=== PATIENT | female | born 1945 | race Caucasian/White ===

== ENCOUNTER → 2016-05-28 | Outpatient (CLI) | payer BC ==
[~2016-05-28] MED LIST: ATOR-54 PO; CHOLTAB3 PO; CLOB-65 EXT; ESTCR PV; FAMO10CH PO; FLV400 PO; IRONCAP18 PO; METO50TA7 PO; MULT60CA PO; MULTTAB PO
[2016-05-28 11:01] LABS: BASO % 0.5 %; BASO ABS # 0.03 K/uL (0-0.2); COMPLETE YES; EOS % 1.7 %; HEMATOCRIT 39.4 % (37-47); IG% 0.5 %; LYMPH % 18.8 %; LYMPH ABS # 1.13 K/uL (1.2-3.4); MEAN CELL VOLUME 82.3 fL (80-100); MEAN CORPUSCULAR HEMOGLOBIN 27.6 pg (25-34); MEAN CORPUSCULAR HGB CONC 33.5 g/dl (32-36); MEAN PLATELET VOLUME 8.9 fL (7.4-10.4); MONO % 6.3 %; NEUT % 72.2 %; PLATELET COUNT 210 K/uL (130-400); RED BLOOD COUNT 4.79 M/uL (4.2-5.4); WHITE BLOOD COUNT 6.02 K/uL (4.8-10.8)
[2016-05-28 13:13] LABS: ESTIMATED AVERAGE GLUCOSE 103 mg/dl; HA1C FLAG Normal (Normal)
[2016-05-28 13:17] LABS: ALT/SGPT 21 U/L (12-78); AST/SGOT 18 U/L (15-37); BLOOD UREA NITROGEN 22 mg/dl (7-18); BUN/CREATININE RATIO 32.1 (10-20); C-REACTIVE PROTEIN 0.32 mg/dl (0-0.29); CARBON DIOXIDE 28 mmol/L (21-32); CHLORIDE 110 mmol/L (98-107); CREATININE 0.67 mg/dl (0.60-1.20); GLUCOSE 88 mg/dl (70-99); POTASSIUM 3.9 mmol/L (3.5-5.1); RHEUMATOID FACTOR < 10.0 U/mL (0-15); SODIUM 143 mmol/L (136-145)
[2016-05-28 13:19] LABS: ALB/GLOB RATIO 1.1 (0.9-2); ALKALINE PHOSPHATASE 78 U/L (45-117)
[2016-05-28 13:19] LABS: CHOLESTEROL/HDL RATIO 3.9
[2016-05-28 13:33] LABS: LYME DISEASE AB IGG NEG (NEG); LYME DISEASE AB IGM NEG (NEG)
--- NOTE | 2016-06-01 11:28 | CODING QUERY MEDICAL NECESSITY ---
SUPPORTING DIAGNOSIS NEEDED Ritter LEUNG, A supporting diagnosis is required for the test/procedure performed on this patient in order for us to be reimbursed by the patient's insurance. Please provide a supporting diagnosis for the following test/procedure listed below next to the test name along with your signature. *If there is no additional diagnosis for this patient that would support the following test/procedure please document that below next to the test/procedure. Test(s)/Procedure(s) that require a supporting diagnosis: * [id number] GLYCATED HEMOGLOBIN DIAGNOSIS: DATE OF SERVICE: 05/28/16 Provider Signature: Date: Thank you Cali M[facility] Information Management Once completed, please kindly fax back to [phone] For questions please call [phone]
== END | disposition home or self-care (01) ==
LOC: C.LABBC 10:03
PROVIDERS: ATTEND Family Medicine
DX: Z00.00 Encounter for general adult medical examination without abnormal findings (principal); E78.5 Hyperlipidemia, unspecified; M16.12 Unilateral primary osteoarthritis, left hip

== ENCOUNTER → 2016-06-16 | Outpatient (CLI) | payer BC | END | disposition home or self-care (01) | LOC: C.MAMM 09:19 | PROVIDERS: ATTEND Nurse Practitioner Adult Health | DX: M16.12 Unilateral primary osteoarthritis, left hip (principal); M85.851 Other specified disorders of bone density and structure, right thigh; M85.852 Other specified disorders of bone density and structure, left thigh; M85.9 Disorder of bone density and structure, unspecified ==

== ENCOUNTER → 2016-06-24 | Outpatient (CLI) | payer BC ==
--- NOTE | 2016-06-24 16:25 | DIAGNOSTIC IMAGING REPORT ---
PELVIS 1 OR 2 VIEW ROUTINE CLINICAL HISTORY: R76.8 Positive ELVI (antinuclear antibody)M25.50 PolyarthralgiaM2 pain COMPARISON: None. DISCUSSION: Mild degenerative changes of the hips bilaterally. No evidence for acetabular protrusion. All remaining osseous structures are unremarkable. There is no evidence for soft tissue swelling. IMPRESSION: Mild degenerative narrowing of the hip joint spaces bilaterally. Electronically signed by: Shree Mcgregor M.D. 06/24/2016 4:24 PM Dictated Date/Time: 06/24/2016 4:24 PM
--- NOTE | 2016-06-24 16:26 | DIAGNOSTIC IMAGING REPORT ---
CERVICAL SPINE 5 VIEWS HISTORY: Pain R76.8 Positive ELVI (antinuclear antibody)M25.50 PolyarthralgiaM2 COMPARISON: None. FINDINGS: The cervical spine is visualized from C1 through the superior endplate of T1. There is no fracture. No subluxation. Moderate degenerative disc change from C5 through C7. Prevertebral soft tissues and the atlantodens interval are intact. IMPRESSION: Moderate degenerative disc change from C5 through C7. Otherwise negative study Electronically signed by: Shree Mcgregor M.D. 06/24/2016 4:25 PM Dictated Date/Time: 06/24/2016 4:24 PM
--- NOTE | 2016-06-24 16:27 | DIAGNOSTIC IMAGING REPORT ---
LEFT HAND MIN 3 VIEWS ROUTINE CLINICAL HISTORY: R76.8 Positive ELVI (antinuclear antibody)M25.50 PolyarthralgiaM2 LEFT HAND PAIN COMPARISON: None. DISCUSSION: The bones are osteopenic. There are osteoarthritic type changes most pronounced at the level of the first carpometacarpal joint. No fractures are visualized. No bony erosions are evident. IMPRESSION: 1. Osteopenia 2. Osteoarthritic type changes most pronounced at the level the first carpal metacarpal joint 3. No acute fractures 4. No evidence of bony erosive disease Electronically signed by: Deniz De La Rosa M.D. 06/24/2016 4:25 PM Dictated Date/Time: 06/24/2016 4:24 PM
--- NOTE | 2016-06-24 16:27 | DIAGNOSTIC IMAGING REPORT ---
RIGHT HAND MIN 3 VIEWS ROUTINE CLINICAL HISTORY: R76.8 Positive ELVI (antinuclear antibody)M25.50 PolyarthralgiaM2 Right pain COMPARISON: None. DISCUSSION: The bones and joint spaces appear intact. There is no evidence of fracture, dislocation or bony disease. There is no evidence for soft tissue swelling. IMPRESSION: Negative study. Electronically signed by: Shree Mcgregor M.D. 06/24/2016 4:25 PM Dictated Date/Time: 06/24/2016 4:25 PM
[2016-06-24 17:14] LABS: C-REACTIVE PROTEIN 0.78 mg/dl (0-0.29); RHEUMATOID FACTOR < 10.0 U/mL (0-15); TOTAL IRON BINDING CAPACITY 275 mcg/dl (250-450)
[2016-06-29 04:37] LABS: ANTI-CENTROMERE AB <1.0 NEG AI (<1.0 NEG); ANTI-SS-A <1.0 NEG AI (<1.0 NEG); ANTI-SS-B <1.0 NEG AI (<1.0 NEG); DNA ds CRITHIDIA NEGATIVE (NEGATIVE); Sm Antibody <1.0 NEG AI (<1.0 NEG)
== END | disposition home or self-care (01) ==
LOC: C.RAD1850 15:16
PROVIDERS: ATTEND Internal Medicine Rheumatology
DX: M25.511 Pain in right shoulder (principal); M25.512 Pain in left shoulder; R76.8 Other specified abnormal immunological findings in serum; M85.842 Other specified disorders of bone density and structure, left hand

== ENCOUNTER → 2016-08-25 | Outpatient (CLI) | payer BC ==
[2016-08-25 12:21] LABS: BASO % 0.3 %; BASO ABS # 0.03 K/uL (0-0.2); COMPLETE YES; EOS % 1.2 %; LYMPH % 10.5 %; MEAN CELL VOLUME 87.5 fL (80-100); MEAN CORPUSCULAR HEMOGLOBIN 27.4 pg (25-34); MEAN CORPUSCULAR HGB CONC 31.3 g/dl (32-36); MEAN PLATELET VOLUME 9.3 fL (7.4-10.4); PLATELET COUNT 245 K/uL (130-400); RED BLOOD COUNT 5.14 M/uL (4.2-5.4); WHITE BLOOD COUNT 11.41 K/uL (4.8-10.8)
[2016-08-25 12:32] LABS: AST/SGOT 17 U/L (15-37); BLOOD UREA NITROGEN 19 mg/dl (7-18); BUN/CREATININE RATIO 22.5 (10-20); CALCIUM 9.2 mg/dl (8.5-10.1); CARBON DIOXIDE 26 mmol/L (21-32); CHLORIDE 110 mmol/L (98-107); CHOLESTEROL 191 mg/dl (0-200); CREATININE 0.84 mg/dl (0.60-1.20); GLUCOSE 89 mg/dl (70-99); POTASSIUM 3.9 mmol/L (3.5-5.1); SODIUM 141 mmol/L (136-145)
[2016-08-25 12:36] LABS: ALB/GLOB RATIO 1.1 (0.9-2); ALKALINE PHOSPHATASE 59 U/L (45-117); ALT/SGPT 30 U/L (12-78); C-REACTIVE PROTEIN < 0.29 mg/dl (0-0.29); CHOLESTEROL/HDL RATIO 2.7; HDL CHOLESTEROL 72 mg/dl; LDL CHOLESTEROL CALCULATED 89 mg/dl; TRIGLYCERIDES 151 mg/dl (0-150); VERY LOW DENSITY LIPOPROT CALC 30 mg/dl
== END | disposition home or self-care (01) ==
LOC: C.LAB1850 09:46
PROVIDERS: ATTEND Internal Medicine Rheumatology
DX: E78.5 Hyperlipidemia, unspecified (principal); M85.80 Other specified disorders of bone density and structure, unspecified site; E55.9 Vitamin D deficiency, unspecified; M35.3 Polymyalgia rheumatica; Z79.52 Long term (current) use of systemic steroids

== ENCOUNTER → 2016-09-27 | Outpatient (CLI) | payer BC | END | disposition home or self-care (01) | LOC: C.LAB1850 09:06 | PROVIDERS: ATTEND Internal Medicine Rheumatology | DX: M35.3 Polymyalgia rheumatica (principal); Z79.52 Long term (current) use of systemic steroids; M85.80 Other specified disorders of bone density and structure, unspecified site ==

== ENCOUNTER → 2016-10-31 | Outpatient (CLI) | payer BC | END | disposition home or self-care (01) | LOC: C.LAB1850 09:34 | PROVIDERS: ATTEND Internal Medicine Rheumatology | DX: M35.3 Polymyalgia rheumatica (principal); Z79.52 Long term (current) use of systemic steroids; E55.9 Vitamin D deficiency, unspecified ==

== ENCOUNTER → 2017-01-16 | Outpatient (CLI) | payer BC | END | disposition home or self-care (01) | LOC: C.LAB1850 14:39 | PROVIDERS: ATTEND Internal Medicine Rheumatology | DX: M35.3 Polymyalgia rheumatica (principal) ==

== ENCOUNTER → 2017-02-01 | Outpatient (CLI) | payer BC ==
[2017-02-01 10:30] LABS: URINE APPEARANCE CLEAR (CLEAR); URINE BILIRUBIN NEG (NEG); URINE COLOR RED; URINE EPITHELIAL CELL AUTO 0-5 /lpf (0-5); URINE NITRITE NEG (NEG); URINE PH 6.5 (4.5-7.5); URINE SPECIFIC GRAVITY 1.012 (1.000-1.030); UROBILINOGEN NEG (NEG)
[2017-02-01 10:31] LABS: MANUAL MICROSCOPIC REQUIRED? NO; REVIEW REQ? NO
[2017-02-01 10:32] LABS: SULFASALICYLIC ACID POS (NEG)
[2017-02-01 10:38] LABS: ALT/SGPT 21 U/L (12-78); BLOOD UREA NITROGEN 21 mg/dl (7-18); BUN/CREATININE RATIO 27.9 (10-20); CALCIUM 8.9 mg/dl (8.5-10.1); CARBON DIOXIDE 23 mmol/L (21-32); CHLORIDE 108 mmol/L (98-107); CREATININE 0.76 mg/dl (0.60-1.20); GLUCOSE 92 mg/dl (70-99); POTASSIUM 3.7 mmol/L (3.5-5.1); SODIUM 140 mmol/L (136-145)
[2017-02-01 11:00] LABS: ALB/GLOB RATIO 1.1 (0.9-2); ALKALINE PHOSPHATASE 68 U/L (45-117); AST/SGOT 17 U/L (15-37)
== END | disposition home or self-care (01) ==
LOC: C.LAB1850 09:10
PROVIDERS: ATTEND Physician Assistant
DX: R31.9 Hematuria, unspecified (principal); L65.9 Nonscarring hair loss, unspecified

== ENCOUNTER → 2017-02-03 | Outpatient (CLI) | payer BC ==
--- NOTE | 2017-02-03 11:35 | DIAGNOSTIC IMAGING REPORT ---
(RENAL)RETROPERITON COMP HISTORY: Hematuria. Pain. Nausea. R31.9 [id number] COMPARISON: None. FINDINGS: Right kidney: Maximum dimension 9.7 cm. 2 cm upper pole cyst. Normal corticomedullary differentiation and cortical thickness. No evidence for hydronephrosis. Left kidney: Maximum dimension 9.7 cm. No evidence for hydronephrosis. Normal corticomedullary differentiation and cortical thickness. Bladder: No bladder wall thickening. The bilateral ureteral jets were identified. IMPRESSION: Normal renal ultrasound. 2 cm upper pole right renal cyst. Incidental note is made of gallstones within the gallbladder. The above report was generated using voice recognition software. It may contain grammatical, syntax or spelling errors. Electronically signed by: Shree Mcgregor M.D. 02/03/2017 11:33 AM Dictated Date/Time: 02/03/2017 11:32 AM
== END | disposition home or self-care (01) ==
LOC: C.ULTR 10:53
PROVIDERS: ATTEND Physician Assistant
DX: R31.9 Hematuria, unspecified (principal); N28.1 Cyst of kidney, acquired; K80.20 Calculus of gallbladder without cholecystitis without obstruction

== ENCOUNTER → 2017-02-25 | Outpatient (CLI) | payer BC ==
[2017-02-25 10:36] LABS: CHOLESTEROL 208 mg/dl (0-200); LDL CHOLESTEROL CALCULATED 106 mg/dl
== END | disposition home or self-care (01) ==
LOC: C.LAB1850 07:57
PROVIDERS: ATTEND Internal Medicine Rheumatology
DX: K21.9 Gastro-esophageal reflux disease without esophagitis (principal); M35.3 Polymyalgia rheumatica; Z79.52 Long term (current) use of systemic steroids; E78.5 Hyperlipidemia, unspecified

== ENCOUNTER → 2017-04-11 | Outpatient (CLI) | payer BC ==
[~2017-04-11] MED LIST changes: -CHOLTAB3 PO; -CLOB-65 EXT; +ESOM20CA PO; -ESTCR PV; -FAMO10CH PO; +FAMO20TA11 PO; +FERR324T PO; +HYDR25TA4 PO; -IRONCAP18 PO; -METO50TA7 PO; +METO50TA8 PO; +PRD/1 PO; +PRED-301 PO
--- NOTE | 2017-04-11 13:34 | DIAGNOSTIC IMAGING REPORT ---
CHEST 2 VIEWS ROUTINE CLINICAL HISTORY: PRODUCTIVE COUGH COMPARISON STUDY: December 22, 2016 FINDINGS: There is a large hiatal hernia with intrathoracic stomach. There is no focal pulmonary consolidation. There are no pleural effusions. There is no failure. IMPRESSION: Large hiatal hernia with intrathoracic stomach. No acute findings. Electronically signed by: Deniz De La Rosa M.D. 04/11/2017 1:33 PM Dictated Date/Time: 04/11/2017 1:31 PM
== END | disposition home or self-care (01) ==
LOC: C.RAD1850 12:58
PROVIDERS: ATTEND Nurse Practitioner Adult Health
DX: K44.9 Diaphragmatic hernia without obstruction or gangrene (principal); R05 Cough

== ENCOUNTER → 2017-04-17 | Outpatient (CLI) | payer BC ==
[2017-04-17 10:34] LABS: BLOOD UREA NITROGEN 26 mg/dl (7-18); CREATININE 0.82 mg/dl (0.60-1.20)
== END | disposition home or self-care (01) ==
LOC: C.LAB1850 09:09
PROVIDERS: ATTEND Internal Medicine Rheumatology
DX: K21.9 Gastro-esophageal reflux disease without esophagitis (principal); R76.8 Other specified abnormal immunological findings in serum; M35.3 Polymyalgia rheumatica; R31.0 Gross hematuria; Z79.52 Long term (current) use of systemic steroids

== ENCOUNTER → 2017-04-26 | Outpatient (CLI) | payer BC ==
[~2017-04-26] MED LIST changes: +OPTIRAY 320 IV PRN
--- NOTE | 2017-04-26 09:29 | DIAGNOSTIC IMAGING REPORT ---
CT ABD/PELVIS COMBO CLINICAL HISTORY: Hematuria COMPARISON STUDY: Renal ultrasound dated 02/03/2017, CT scan dated 05/28/2015 TECHNIQUE: Unenhanced images were obtained through the abdomen and pelvis. The patient was injected with 50 cc of Optiray 320. After 5 minute delay, the patient was re-images and dynamic helical fashion during the additional administration of 70 cc of Optiray 320. A dose lowering technique was utilized adhering to the principles of ALARA. CT DOSE: 1355.76 mGycm FINDINGS: Lower chest: There is a large hiatal hernia containing portions of stomach and colon. There are lower lobe atelectatic changes. Liver: There are multiple water attenuation masses, the largest of which is located within the left lobe measuring 6 cm. The findings are consistent with multiple hepatic cysts Gallbladder: Cholelithiasis Spleen: The spleen is the upper limits of normal in size measuring 11 cm Pancreas: There is a 16 mm cystic lesion within the pancreatic tail. This appears to communicate with the pancreatic duct. This likely represents an IPMN. Adrenal glands: Unremarkable. Kidneys: There is a punctate nonobstructing lower pole right renal calculus. No ureteral calculi are visualized. There is a 2.5 cm upper pole right renal cyst. No solid renal masses are visualized. No collecting system lesions are visualized. No ureteral lesions are visualized. Bowel: 6 there are no transition zones indicate bowel obstruction. There is extensive colonic diverticulosis. No acute peridiverticular inflammatory changes are visualized. Peritoneum: There is no intraperitoneal free air or abdominal ascites. There is a persistent fat-containing posterior lateral abdominal wall hernia at the level the left kidney Vasculature: The abdominal aorta is normal in course and caliber. Adenopathy: None. Pelvic viscera: The uterus is surgically absent Skeletal structures: No destructive osseous lesions are seen. IMPRESSION: 1. Very large hiatal hernia containing portions of stomach and colon 2. Cholelithiasis 3. 16 mm cystic lesion within the pancreatic tail likely representing an IPMN 4. Punctate nonobstructing lower pole right renal calculus 5. 2.5 cm upper pole right renal cyst 6. No solid renal masses identified. No uroepithelial lesions identified. 7. Colonic diverticulosis 8. Fat-containing posterior lateral abdominal wall hernia Electronically signed by: Deniz De La Rosa M.D. 04/26/2017 9:27 AM Dictated Date/Time: 04/26/2017 9:08 AM
== END | disposition home or self-care (01) ==
LOC: C.CTS 08:41
PROVIDERS: ATTEND Urology
DX: R31.0 Gross hematuria (principal); K44.9 Diaphragmatic hernia without obstruction or gangrene; K80.20 Calculus of gallbladder without cholecystitis without obstruction; K86.9 Disease of pancreas, unspecified; K57.30 Diverticulosis of large intestine without perforation or abscess without bleeding; K43.9 Ventral hernia without obstruction or gangrene

== ENCOUNTER → 2017-05-16 | Outpatient (CLI) | payer BC ==
[~2017-05-16] MED LIST changes: -OPTIRAY 320 IV PRN
== END | disposition home or self-care (01) ==
LOC: C.LAB1850 11:35
PROVIDERS: ATTEND Internal Medicine Rheumatology
DX: K44.9 Diaphragmatic hernia without obstruction or gangrene (principal); M35.3 Polymyalgia rheumatica; Z79.52 Long term (current) use of systemic steroids

== ENCOUNTER → 2017-07-10 | Outpatient (CLI) | payer BC | END | disposition home or self-care (01) | LOC: C.LAB1850 09:37 | PROVIDERS: ATTEND Internal Medicine Rheumatology | DX: R76.8 Other specified abnormal immunological findings in serum (principal); M35.3 Polymyalgia rheumatica; M85.80 Other specified disorders of bone density and structure, unspecified site ==

== ENCOUNTER → 2017-10-12 | Outpatient (CLI) | payer BC | END | disposition home or self-care (01) | LOC: C.LAB1850 08:54 | PROVIDERS: ATTEND Internal Medicine Rheumatology | DX: M35.3 Polymyalgia rheumatica (principal); Z79.82 Long term (current) use of aspirin; K21.9 Gastro-esophageal reflux disease without esophagitis ==

== ENCOUNTER 2024-10-18 10:26 | Observation (INO) ==
--- NOTE | 2024-10-18 10:39 | Emergency Department Note ---
History of Present Illness General Chief complaint: Cough Stated complaint: COUGHING UP DARK BROWN MUCOUS Time Seen by Provider: 10/18/24 10:33 History of Present Illness This is an 79-year-old female who presents to the emergency department via private vehicle with complaints of "coughing up dark brown mucus". The patient notes that she was seen here on October 06, 2024 and diagnosed with a viral upper respiratory infection. Parainfluenza was of suspicion as her daughter had the same illness. She states that she was overall doing well and the cough was improving. However last night and today notes that the cough is producing a dark brown mucus. She was concerned there for prompting arrival here today. She still feels fatigued. She denies any fever. No chest pain. No shortness of breath. No anticoagulant use. Home Medications Medication Instructions Recorded Confirmed Type cholecalciferol (vitamin D3) 125 125 mcg PO DAILY 11/28/19 10/18/24 History mcg (5,000 unit) capsule acetaminophen 500 mg tablet 1,000 mg PO Q6H PRN Pain 07/08/20 10/18/24 History ibuprofen 200 mg tablet (Advil) 400 mg PO Q6H PRN Pain 07/08/20 10/18/24 History fluticasone propionate 50 1 spray intranasal DAILY PRN 01/04/23 10/18/24 History mcg/actuation nasal Congestion spray,suspension (Flonase Allergy Relief) metoprolol succinate 50 mg 50 mg PO DAILY #90 tabs 01/17/24 10/18/24 Rx tablet,extended release 24 hr atorvastatin 20 mg tablet 0 mg PO DAILY 10/06/24 10/18/24 History benzonatate 200 mg capsule 200 mg PO TID PRN cough #30 caps 10/14/24 10/18/24 Rx amoxicillin 875 mg-potassium 1 tab PO BIDM #12 tabs 10/18/24 Rx clavulanate 125 mg tablet apixaban 5 mg tablet (Eliquis) 5 mg PO BID #60 tabs 10/18/24 Rx Allergies Allergy/AdvReac Type Severity Reaction Status Date / Time doxycycline Allergy Severe FLU LIKE Verified 04/29/24 08:09 SYMPTOMS erythromycin base Allergy Severe GI SYMPTOMS Verified 04/29/24 08:09 azithromycin Allergy Intermediate Rash Unverified 04/29/24 08:09 Bactrim Allergy Intermediate RASH Verified 04/06/17 13:00 clarithromycin Allergy Intermediate RASH Verified 04/29/24 08:09 sulfamethoxazole Allergy Intermediate RASH Verified 04/29/24 08:09 trimethoprim Allergy Intermediate RASH Verified 04/29/24 08:09 nitrofurantoin Allergy Unknown FLU LIKE Verified 04/29/24 08:09 SYMPTOMS codeine AdvReac Intermediate MAKES FEEL Verified 04/29/24 08:09 TOO AWAKE Azithromycin TABS Allergy Mild Rash Uncoded 04/29/24 08:09 Past Med/Surg History Problem List (Updated 10/18/24 @ 17:51 by Arnie Chung DO) Pulmonary embolism Acute viral syndrome (Acute) Nasal congestion (Acute) Bronchitis (Acute) Cough (Acute) Osteoarthritis Hypertension Hyperlipemia Vitamin D deficiency Rosacea (Acute) Postmenopausal atrophic vaginitis (Acute) Positive ELVI (antinuclear antibody) (Acute) Polymyalgia rheumatica Pancreatic cyst Osteopenia Mitral regurgitation Macular degeneration (Acute) Lichen sclerosus et atrophicus (Acute) Left bundle branch block Hyperhomocystinemia (Acute) Hiatal hernia (Acute) Hepatic cyst Hemorrhoids (Acute) GERD without esophagitis (Acute) Atrial premature complex (Acute) Medical History Congestion of nasal sinus Surgical History History of Mohs micrographic surgery for skin cancer Chiquis History of dilation and curettage History of section History of cataract surgery History of breast biopsy Open Family History Brother Alzheimer disease Aunt Breast cancer Daughter FHx: Down's syndrome Sister , July 2023 Hypertension Breast cancer Other Kidney disease Denies family history of Ovarian cancer Prostate cancer Myocardial infarction Colorectal cancer Social History Smoking Status: Never smoker Second Hand Exposure: No; Do You Dip or Chew Tobacco: No; Hx Alcohol Use: No Hx Substance Use: No Preferred Language: Panamanian Visual Impairment: No Limitations Hearing Ability: Normal Clocksmith Required: No marital status: Current Living Situation: Spouse Current Living Situation Comment: lives w/ spouse and daughter current occupational status: retired How many Children do You have: 3 Feels Safe at Home: Yes Childhood Exposure to Second-Hand Smoke: No Diet: regular caffeine: No during the past year weight has: remained stable Dental Care, Regularly: Yes Physical Activity Frequency: Daily Physical Activity Frequency Comment: housework Seatbelt Use: always Sunscreen Use: Yes Review of Systems A total of 10 systems reviewed and were otherwise negative Physical Exam Vital Signs Vital Signs - 24 hr 10/18/24 10:29 10/18/24 12:30 Temperature 36.4 C L Temperature Source Temporal Artery Scan Pulse Rate 81 Pulse Rate [Apical] 85 Respiratory Rate 18 16 Respiratory Effort / Characteristics Non-Labored Spontaneous Respiratory Depth Normal Respiratory Pattern Regular Blood Pressure 141/75 H Blood Pressure [Right Arm] 130/74 Blood Pressure Mean 97 Blood Pressure Mean [Right Arm] 92 Pulse Oximetry 95 93 Oxygen Delivery Method Room Air Room Air Sepsis Recent Fever Within 48 Hours No Sepsis New/Unexplained Change in Mental Status N/A Sepsis Action Taken by Nursing No Action Required VITAL SIGNS - Vital signs and nursing notes were reviewed. Stable and afebrile. GENERAL -79-year-old female appearing her stated age who is in no acute distress. Communicates well with provider and answers questions appropriately. SKIN - Without rashes. No meningeal or petechial rash. HEAD - NC/AT. EYES - Sclera anicteric. EARS - No deformities of external structures noted on gross examination bilaterally. NOSE - Midline and without cyanosis. No epistaxis or purulent drainage noted. MOUTH/OROPHARYNX - Without perioral cyanosis. NECK - Neck with FROM. No nuchal rigidity. LUNGS - CTA CARDIAC - RRR ABDOMEN - Abdominal contour normal without pulsations or visible masses. BS normoactive all four quadrants. No tenderness, palpable masses, hepatosplenomegaly, or ascites noted. EXTREMITIES - No clubbing or peripheral cyanosis.+5/5 strength noted in UE/LE bilaterally. NEUROLOGIC - Cranial nerves II through XII grossly intact. PSYCH -alert, oriented and pleasant on exam Course Administered Medications Discontinued Medications Ioversol (Optiray 320 125ml) 112 ml IV ONCE ONE Stop: 10/18/24 12:01 Last Admin: 10/18/24 12:00 Dose: 112 ml Documented By: SHIRIN Medical Decision Making Laboratory Data 10/18/24 10:53 10/18/24 10:53 Lab Results 10/18/24 Range/Units 10:53 WBC 8.15 (4.8-10.8) K/ul RBC 4.56 (4.20-5.40) M/uL Hgb 13.1 (12.0-16.0) g/dl Hct 40.0 (37.0-47.0) % MCV 87.7 (80.0-100.0) fL MCH 28.7 (25.0-34.0) pg MCHC 32.8 (32.0-36.0) g/dL RDW Std Deviation 45.0 (36.4-46.3) fL RDW Coeff of Tisha 14.1 (11.5-14.5) % Plt Count 182 (130-400) K/uL MPV 9.5 (9.4-12.4) fL Immature Gran % (Auto) 0.7 % Neut % (Auto) 86.1 % Lymph % (Auto) 6.7 % Beauregard % (Auto) 5.0 % Eos % (Auto) 1.1 % Baso % (Auto) 0.4 % Neut # (Auto) 7.01 H (1.40-6.50) K/uL Lymph # (Auto) 0.55 L (1.20-3.40) K/uL Beauregard # (Auto) 0.41 (0.11-0.59) K/uL Eos # (Auto) 0.09 (0.00-0.50) K/uL Baso # (Auto) 0.03 (0.00-0.20) K/uL Immature Gran # (Auto) 0.06 (0.01-0.20) K/uL PT 11.5 (9.0-12.0) Seconds INR 1.1 (0.9-1.1) APTT 28 (21-31) Seconds PTT Ratio 1.0 Sodium 140 (136-145) mmol/L Potassium 3.7 (3.5-5.1) mmol/L Chloride 110 H (98-107) mmol/L Carbon Dioxide 25 (21-32) mmol/L Anion Gap 5 (3-11) BUN 22 (6-23) mg/dl Creatinine 0.79 (0.6-1.2) mg/dl Est Cr Clr Drug Dosing Not Reportable eGFR 75.10 BUN/Creatinine Ratio 27.8 H (10-20) Glucose 104 H (70-99(Fasting)) mg/dl Calcium 9.1 (8.6-10.3) mg/dl Total Bilirubin 0.7 (0.2-1.0) mg/dl AST 17 (13-39) U/L ALT 11 (7-52) U/L Alkaline Phosphatase 66 (34-104) U/L Troponin I High Sens 6.4 (0-14) pg/ml Total Protein 6.5 (6.0-8.3) gm/dl Albumin 3.4 (3.4-5.0) gm/dl Globulin 3.1 (2.5-4.0) gm/dl Albumin/Globulin Ratio 1.1 (0.9-2) Imaging Data Radiologist's Impression: Chest CTA 10/18/24 10:38 CT ANGIOGRAM OF THE CHEST CLINICAL HISTORY: Cough. COMPARISON STUDY: Chest CT May 28, 2015. Chest radiograph October 06, 2024. TECHNIQUE: Following the IV administration of 94 cc of Optiray 320, CT angiogram of the chest was performed from the upper abdomen to the thoracic inlet utilizing the pulmonary embolus protocol. Images are reviewed in the axial, sagittal, and coronal planes. 3-D MIPS images are created and assessed. IV contrast was administered without complication. A dose lowering technique was utilized adhering to the principles of ALARA. CT DOSE: 421.61 mGy.cm FINDINGS: There is a moderate to large embolus within the distal right pulmonary artery that measures 4.2 x 1.5 cm. This appears adherent to the arterial wall. This is age indeterminate but new since CT of December 15, 2021. No additional pulmonary emboli are identified. The heart is mildly enlarged. There is no pericardial effusion. A trace left pleural effusion is present. There is no pneumothorax. Moderate left lower lobe alveolar opacities are present. Segmental right lower lobe atelectasis is noted. This is due to a large hiatal hernia with intrathoracic stomach. A portion of the pancreas is also within the chest. Multiple bowel loops are also within the hernia sac. This was shown on prior abdominal CT. There is moderate emphysema. Mild splenomegaly and numerous hepatic cysts are incidentally noted within visualized portions of the upper abdomen. IMPRESSION: 1. Moderate to large solitary pulmonary embolus within the distal right pulmonary artery that measures 4.2 x 1.5 cm. This represents an age indeterminate pulmonary embolus which is new since CT of December 15, 2021. 2. Left lower lobe alveolar opacity. This favors pneumonia or aspiration pneumonitis. A chest CT in 3 months to ensure resolution is recommended. 3. Redemonstration of a large hiatal hernia with intrathoracic stomach and portions of the bowel and pancreas. 4. Emphysema. ACT 112: Negative or not required by law. Electronically signed by: Santi King M.D. 10/18/2024 12:31 PM MDM Narrative Patient was seen and evaluated as above in room B02. Review was performed of triage nursing notes and vital signs. I did review pertinent previous visits and patient history. After obtaining a thorough history and physical examination the above work up was performed. Patient presents to us today for evaluation of a cough productive now with a brown mucus. She is well-appearing and nontoxic. Vital signs are overall stable. Lungs are clear to auscultation. Options of care were discussed with the patient. IV access was established. Labs were drawn. There is no leukocytosis or concerning anemia. Coags normal. There is no evidence of kidney or liver failure. Mild hyperglycemia 104. Troponin 6.4, within normal range EKG per my interpretation reveals normal sinus rhythm at a rate of 76 bpm. QTc 479. QRS 126. Left lateral branch block noted however this was compared to EKG dated October 06, 2024 and it is unchanged. A CT of the chest was obtained to further assess the patient's symptoms following upper respiratory infection. CT scan as above. There is a moderate to large solitary PE noted. Left lower lobe alveolar opacity pneumonia versus aspiration pneumonitis. Large hiatal hernia noted. At this time I do believe that further evaluation and management inpatient setting is warranted noting the dark brownish productive cough that is now new. Plan at this time is further evaluation and management in the inpatient setting. Case discussed with the hospitalist service. Please refer to further documentation regarding her stay. GCS: 15 In the evaluation and treatment of this patient the following differential diagnoses were entertained: MS, PE, pericarditis, costochondritis, among others. Impression & Plan Cough, Pulmonary embolism, Pneumonia Discharge Plan Visit Data Chief Complaint: Cough Stated Complaint: COUGHING UP DARK BROWN MUCOUS ED Provider: Guy Mallory ED Midlevel Provider: Faheem Meng Discharge Problem: Cough, Pulmonary embolism, Pneumonia Patient Disposition: Admitted As Inpatient Condition: Good Discharge Instructions Interventions: ED Discharge Assessment Last Done: 10/18/24 16:55
[2024-10-18 11:14] LABS: Hematocrit (blood only) 40.0 % (37.0-47.0); Hemoglobin 13.1 g/dl (12.0-16.0); Immature Granulocytes # (auto) 0.06 K/uL (0.01-0.20); Immature Granulocytes % (auto) 0.7 %; Mean Corpuscular Hemoglobin 28.7 pg (25.0-34.0); Mean Corpuscular Volume 87.7 fL (80.0-100.0); Platelet Count 182 K/uL (130-400); RDW Standard Deviation 45.0 fL (36.4-46.3); Red Blood Count 4.56 M/uL (4.20-5.40); White Blood Count 8.15 K/ul (4.8-10.8)
[2024-10-18 11:32] LABS: Alanine Aminotransferase 11 U/L (7-52); Albumin Globulin Ratio 1.1 (0.9-2); Alkaline Phosphatase 66 U/L (34-104); Anion Gap 5 (3-11); Bilirubin,Total 0.7 mg/dl (0.2-1.0); Blood Urea Nitrogen 22 mg/dl (6-23); Calcium 9.1 mg/dl (8.6-10.3); Carbon Dioxide 25 mmol/L (21-32); Chloride 110 mmol/L (98-107); Globulin 3.1 gm/dl (2.5-4.0); Glucose 104 mg/dl (70-99(Fasting)); Potassium 3.7 mmol/L (3.5-5.1); Sodium 140 mmol/L (136-145); Total Protein 6.5 gm/dl (6.0-8.3)
[2024-10-18 11:45] LABS: INR 1.1 (0.9-1.1); Partial Thromboplastin Time 28 Seconds (21-31); Prothrombin Time 11.5 Seconds (9.0-12.0)
[2024-10-18] MEDS: OPTIRAY 320 125ml IV ONE (12:00)
--- NOTE | 2024-10-18 12:34 | CT Scan Report ---
CT ANGIOGRAM OF THE CHEST CLINICAL HISTORY: Cough. COMPARISON STUDY: Chest CT May 28, 2015. Chest radiograph October 06, 2024. TECHNIQUE: Following the IV administration of 94 cc of Optiray 320, CT angiogram of the chest was per formed from the upper abdomen to the thoracic inlet utilizing the pulmonary embolus protocol. Images are reviewed in the axial, sagittal, and coronal planes. 3-D MIPS images are created and assessed. IV contrast was administered without complication. A dose lowering technique was utilized adhering to the principles of ALARA. CT DOSE: 421.61 mGy.cm FINDINGS: There is a moderate to large embolus within the distal right pulmonary artery that measures 4.2 x 1.5 cm. This appears adherent to the arterial wall. This is age indeterminate but new since CT of December 15, 2021. No additional pulmonary emboli are identified. The heart is mildly enlarged. Th ere is no pericardial effusion. A trace left pleural effusion is present. There is no pneumothorax. M oderate left lower lobe alveolar opacities are present. Segmental right lower lobe atelectasis is not ed. This is due to a large hiatal hernia with intrathoracic stomach. A portion of the pancreas is als o within the chest. Multiple bowel loops are also within the hernia sac. This was shown on prior abdo genesis CT. There is moderate emphysema. Mild splenomegaly and numerous hepatic cysts are incidentally noted within visualized portions of the upper abdomen. IMPRESSION: 1. Moderate to large solitary pulmonary embolus within the distal right pulmonary artery that measure s 4.2 x 1.5 cm. This represents an age indeterminate pulmonary embolus which is new since CT of 2021. 2. Left lower lobe alveolar opacity. This favors pneumonia or aspiration pneumonitis. A chest CT in 3 months to ensure resolution is recommended. 3. Redemonstration of a large hiatal hernia with intrathoracic stomach and portions of the bowel and pancreas. 4. Emphysema. ACT 112: Negative or not required by law. Electronically signed by: Santi King M.D. 10/18/2024 12:31 PM
--- NOTE | 2024-10-18 13:52 | History & Physical Report ---
Date of Service October 18, 2024 Assessment & Plan (1) Community acquired pneumonia: (2) Pulmonary embolism: (3) Hypertension: (4) Hyperlipemia: Plan #community-acquired pneumoniaappears to be a secondary bacterial overgrowth coming after parainfluenza viral infection. Cover with Augmentin. Outlined that hemoptysis is quite common with pneumonias, and fortunately we are not seeing any lung masses or anything else on her CT of concern. 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 Given the size of it and her relatively mild symptomsI think her acute symptoms really are all infectious, but I am quite suspicious/fairly convinced that her chronic dyspnea on exertion is because of this. Fortunately she does not show anything that looks like other PEs or acute PEs, fortunately her CT does not show any evidence of metastatic malignancy (and while the IPMN and was not directly looked at on the CT, hiatal hernia actually does have a lot of her upper abdomen in her chest, and her liver does not have metastatic disease or anything else that would be enough to suggest that we have a metastatic source for PEand the fact that she has had symptoms for probably 2 years without worsening makes me think she probably had an event 2 years ago and then she was never able to remodel around it). Did discuss secondary risk reductionstart Eliquis. Given how long this has been I was tempted to start it chronic suppressive dosing of 2.5 twice daily, but given that it is "new now" I still felt compelled to at least treat with full dosing of 5 mg twice dailybut there was no clear indication for a loading dose given that the PE does not look acute. Discussed that with her chronic and rather severe symptoms she might be a candidate for thrombectomyobviously nothing emergent about thatdiscussed with her that I have not practice at facilities that do this procedure so I am not completely sure she would be a good candidate, but it would certainly be reasonable to discuss with a thoracic surgeon. will want to discuss cessation/significant limitation of NSAIDs. #Hypertensioncontinue her metoprolol #hyperlipidemiacontinue atorvastatin History of Present Illness Chief Complaint: hemoptysis Primary Care Provider: Mamta Méndez DO patient is a very pleasant 79-year-old female who presents with a few days of hemoptysis. She and her daughter were both sick with parainfluenza over the last weekshe had a significant cough, that seem to be starting to get better and then over the last few days the cough got worse and was productive of coffee ground and at times bloody sputum. She is not really feeling much more shortness of breath, but the increase in the cough understandably got her attention. On top of that, she has had an ill-defined probably 2 years or more dyspnea on exertion that seems to be quite significantshe notes she can walk up a flight of steps, but will often take her about 2 minutes to recover. This is not worse now this is not really been getting better or worse over the last few yearsjust really a ongoing problem that has been stable but quite problematic. Allergies Allergy/AdvReac Type Severity Reaction Status Date / Time doxycycline Allergy Severe FLU LIKE Verified 04/29/24 08:09 SYMPTOMS erythromycin base Allergy Severe GI SYMPTOMS Verified 04/29/24 08:09 azithromycin Allergy Intermediate Rash Unverified 04/29/24 08:09 Bactrim Allergy Intermediate RASH Verified 04/06/17 13:00 clarithromycin Allergy Intermediate RASH Verified 04/29/24 08:09 sulfamethoxazole Allergy Intermediate RASH Verified 04/29/24 08:09 trimethoprim Allergy Intermediate RASH Verified 04/29/24 08:09 nitrofurantoin Allergy Unknown FLU LIKE Verified 04/29/24 08:09 SYMPTOMS codeine AdvReac Intermediate MAKES FEEL Verified 04/29/24 08:09 TOO AWAKE Azithromycin TABS Allergy Mild Rash Uncoded 04/29/24 08:09 Home Medications Medication Instructions Recorded Confirmed Type cholecalciferol (vitamin D3) 125 125 mcg PO DAILY 11/28/19 10/18/24 History mcg (5,000 unit) capsule acetaminophen 500 mg tablet 1,000 mg PO Q6H PRN Pain 07/08/20 10/18/24 History ibuprofen 200 mg tablet (Advil) 400 mg PO Q6H PRN Pain 07/08/20 10/18/24 History fluticasone propionate 50 1 spray intranasal DAILY PRN 01/04/23 10/18/24 History mcg/actuation nasal Congestion spray,suspension (Flonase Allergy Relief) metoprolol succinate 50 mg 50 mg PO DAILY #90 tabs 01/17/24 10/18/24 Rx tablet,extended release 24 hr atorvastatin 20 mg tablet 0 mg PO DAILY 10/06/24 10/18/24 History benzonatate 200 mg capsule 200 mg PO TID PRN cough #30 caps 10/14/24 10/18/24 Rx amoxicillin 875 mg-potassium 1 tab PO BIDM #12 tabs 10/18/24 Rx clavulanate 125 mg tablet apixaban 5 mg tablet (Eliquis) 5 mg PO BID #60 tabs 10/18/24 Rx Past Med/Surg History Problem List (Updated 10/18/24 @ 17:51 by Arnie Chung DO) Pulmonary embolism Acute viral syndrome (Acute) Nasal congestion (Acute) Bronchitis (Acute) Cough (Acute) Osteoarthritis Hypertension Hyperlipemia Vitamin D deficiency Rosacea (Acute) Postmenopausal atrophic vaginitis (Acute) Positive ELVI (antinuclear antibody) (Acute) Polymyalgia rheumatica Pancreatic cyst Osteopenia Mitral regurgitation Macular degeneration (Acute) Lichen sclerosus et atrophicus (Acute) Left bundle branch block Hyperhomocystinemia (Acute) Hiatal hernia (Acute) Hepatic cyst Hemorrhoids (Acute) GERD without esophagitis (Acute) Atrial premature complex (Acute) Medical History Congestion of nasal sinus Surgical History History of Mohs micrographic surgery for skin cancer February History of dilation and curettage History of section History of cataract surgery History of breast biopsy Open Family History Brother Alzheimer disease Aunt Breast cancer Daughter FHx: Down's syndrome Sister , July 2023 Hypertension Breast cancer Other Kidney disease Denies family history of Ovarian cancer Prostate cancer Myocardial infarction Colorectal cancer Social History Smoking Status: Never smoker Second Hand Exposure: No; Do You Dip or Chew Tobacco: No; Hx Alcohol Use: No Hx Substance Use: No Preferred Language: Sinhala Visual Impairment: No Limitations Hearing Ability: Normal 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 marital status: Current Living Situation: Spouse Current Living Situation Comment: lives w/ spouse and daughter current occupational status: retired How many Children do You have: 3 Feels Safe at Home: Yes Childhood Exposure to Second-Hand Smoke: No Diet: regular caffeine: No during the past year weight has: remained stable Dental Care, Regularly: Yes Physical Activity Frequency: Daily Physical Activity Frequency Comment: housework Seatbelt Use: always Sunscreen Use: Yes Review of Systems Review of Systems: All systems reviewed & are unremarkable except as noted in HPI & below Physical Exam Physical Exam: In general she is awake and alert pleasant no distress. HEENT normocephalic atraumatic mucous membranes moist. Lungs show significant rales base left no other rales rhonchi or wheezes good effort. Cardio is regular. Extremities show no cyanosis or clubbing. Neuro without focal deficits. Results & Data Results & Data Vital Signs (Past 12 Hours) Vital Signs Temp Pulse Pulse Resp BP BP Pulse Ox 10/18/24 12:30 85 16 130/74 93 10/18/24 10:29 97.5 F L 81 18 141/75 H 95 O2 Del Method 10/18/24 12:30 Room Air 10/18/24 10:29 Room Air Code Status & VTE Plan VTE Prophylaxis Plan VTE Prophylaxis will be ordered: Yes PG Care Time/CCT Total # of Minutes Spent Total Time Spent with Patient: Total time spent is greater than 50% in coordination of care (as documented) at patient's floor/unit and/or counseling patient: Coding Level of Care Code 01484 INT INP/OBS CARE 3/75MIN Diagnoses Community acquired pneumonia J18.9 Pulmonary embolism I26.99 Hypertension I10 Hyperlipemia E78.5
[2024-10-18] MEDS ORDERED: IBUPROFEN 200 MG TAB PO PRN (16:55)
[2024-10-18] MEDS ORDERED: MAGNESIUM HYDROXIDE SUSP 30 ML UDC PO PRN (16:55)
[2024-10-18] MEDS ORDERED: BENZONATATE 100 MG CAPSULE PO PRN (16:55)
[2024-10-18] MEDS ORDERED: POLYETHYLENE (MIRALAX) 17 GM PACK PO PRN (16:55)
[2024-10-18] MEDS ORDERED: ACETAMINOPHEN 500 MG TAB PO PRN (16:55)
[2024-10-18] MEDS ORDERED: MELATONIN 3 MG TAB PO PRN (16:55)
[2024-10-18] MEDS ORDERED: ALUMINUM/MAGNESIUM SUSP 30 ML UDC PO PRN (16:55)
[2024-10-18] MEDS ORDERED: FLUTICASONE PROPIONATE NA SPR 16 GM BTL NAE PRN (16:55)
[2024-10-18] MEDS: AMOXICILLIN/CLAVULANATE 875 MG TAB PO SCH (18:00)
--- NOTE | 2024-10-18 19:48 | Electrocardiogram Report ---
Test Reason : Blood Pressure : */* mmHG Vent. Rate : 76 BPM Atrial Rate : 76 BPM P-R Int : 146 ms QRS Dur : 126 ms QT Int : 426 ms P-R-T Axes : 74 57 89 degrees QTcB Int : 479 ms Normal sinus rhythm Left bundle branch block Abnormal ECG When compared with ECG of 06-Oct-2024 06:48, Questionable change in QRS axis Confirmed by Fernando Lion ([id number]) on 10/18/2024 7:48:09 PM Referred By: REFERRED SELF Confirmed By: Fernando Lion
[2024-10-18] MEDS: APIXABAN 5 MG TABLET PO SCH (21:26)
[2024-10-19] MEDS: ONDANSETRON INJ 2 MG/ML 2 ML VIAL IV PRN (02:09)
[2024-10-19 07:54] VITALS: BP 165/89; PULSE 94; RESP 19; TEMP 98.4; O2SAT 90
[2024-10-19] MEDS: ATORVASTATIN 20 MG TAB PO SCH (08:52)
[2024-10-19] MEDS: METOPROLOL SUCC 50MG EXT REL TAB PO SCH (08:52)
[2024-10-19] MEDS: CHOLECALCIFEROL 125 MCG (5,000 UNITS) TAB PO SCH (08:52)
--- NOTE | 2024-10-19 17:13 | Billing Data ---
Date of Service October 19, 2024 Coding Level of Care Code 46595 IN/OBS DISCH 30 MIN/LESS
--- NOTE | 2024-10-19 17:13 | Discharge Summary ---
Discharge Summary Date of Service October 19, 2024 Principal Dx & Hospital Course #1 = Principal Diagnosis (1) Community acquired pneumonia: (2) Pulmonary embolism: (3) Hypertension: (4) Hyperlipemia: Plan #community-acquired pneumoniaappears to be a secondary bacterial overgrowth coming after parainfluenza viral infection. Cover with Augmentin. Outlined that hemoptysis is quite common with pneumonias, and fortunately we are not seeing any lung masses or anything else on her CT of concern. discussed anticipated resolution. 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 Given the size of it and her relatively mild symptomsI think her acute symptoms really are all infectious, but I am quite suspicious/fairly convinced that her chronic dyspnea on exertion is because of this. Fortunately she does not show anything that looks like other PEs or acute PEs, fortunately her CT does not show any evidence of metastatic malignancy (and while the IPMN and was not directly looked at on the CT, hiatal hernia actually does have a lot of her upper abdomen in her chest, and her liver does not have metastatic disease or anything else that would be enough to suggest that we have a metastatic source for PEand the fact that she has had symptoms for probably 2 years without worsening makes me think she probably had an event 2 years ago and then she was never able to remodel around it). Did discuss secondary risk reductionstart Eliquis. Given how long this has been I was tempted to start it chronic suppressive dosing of 2.5 twice daily, but given that it is "new now" I still felt compelled to at least treat with full dosing of 5 mg twice dailybut there was no clear indication for a loading dose given that the PE does not look acute. Discussed that with her chronic and rather severe symptoms she might be a candidate for thrombectomyobviously nothing emergent about thatdiscussed with her that I have not practice at facilities that do this procedure so I am not completely sure she would be a good candidate, but it would certainly be reasonable to discuss with a thoracic surgeon. will want to discuss cessation/significant limitation of NSAIDs. #Hypertensioncontinue her metoprolol #hyperlipidemiacontinue atorvastatin Notes For Next Care Provider Medication Changes From Visit Augmentin to treat CAP7 days of total antibiotics. Eliquis 5 mg twice daily initiated for VTE. Admission HPI Per Admitting Provider patient is a very pleasant 79-year-old female who presents with a few days of hemoptysis. She and her daughter were both sick with parainfluenza over the last weekshe had a significant cough, that seem to be starting to get better and then over the last few days the cough got worse and was productive of coffee ground and at times bloody sputum. She is not really feeling much more shortness of breath, but the increase in the cough understandably got her attention. On top of that, she has had an ill-defined probably 2 years or more dyspnea on exertion that seems to be quite significantshe notes she can walk up a flight of steps, but will often take her about 2 minutes to recover. This is not worse now this is not really been getting better or worse over the last few yearsjust really a ongoing problem that has been stable but quite problematic. Updated Medication List Medication Instructions Recorded Confirmed Type cholecalciferol (vitamin D3) 125 125 mcg PO DAILY 11/28/19 10/18/24 History mcg (5,000 unit) capsule acetaminophen 500 mg tablet 1,000 mg PO Q6H PRN Pain 07/08/20 10/18/24 History ibuprofen 200 mg tablet (Advil) 400 mg PO Q6H PRN Pain 07/08/20 10/18/24 History fluticasone propionate 50 1 spray intranasal DAILY PRN 01/04/23 10/18/24 History mcg/actuation nasal Congestion spray,suspension (Flonase Allergy Relief) metoprolol succinate 50 mg 50 mg PO DAILY #90 tabs 01/17/24 10/18/24 Rx tablet,extended release 24 hr atorvastatin 20 mg tablet 0 mg PO DAILY 10/06/24 10/18/24 History benzonatate 200 mg capsule 200 mg PO TID PRN cough #30 caps 10/14/24 10/18/24 Rx amoxicillin 875 mg-potassium 1 tab PO BIDM #12 tabs 10/18/24 Rx clavulanate 125 mg tablet apixaban 5 mg tablet (Eliquis) 5 mg PO BID #60 tabs 10/18/24 Rx ondansetron 4 mg disintegrating 4 mg PO Q6H PRN nausea and 10/19/24 Rx tablet vomiting #20 tabs Hospital Stay Data Consultations 10/18/24 12:48 ED Decision to Admit Stat Diagnostic Imagining Performed 10/18/24 10:38 CT angio chest PE protocol Stat Pending Results Patient Have Any Pending Studies at Discharge: No Discharge Instructions Given to Patient (Per Discharging Provider) pneumoniaas we discussed, the most likely scenario with the pneumonia was that you had the same parainfluenza as your daughter, But then while your immune system was distracted fighting off the virus, bacteria were able to overgrow causing a left lower lobe pneumonia. This is unfortunately common. Fortunately it looks fairly mild, and it is likely to improve with a fairly simple course of antibiotics. The usual progression with the pneumonia is at first, while the antibiotics in your immune system are killing the bacteria, the cough and junk that comes out with a cough will often get worse for a few days, and then start to get better. The cough itself can often last for several weeks, and the fatigue that comes with having a pneumonia will typically take about a month to totally go away. Blood clotas we discussed, this does not at all look new. I suspect it is the cause of your shortness of breath with exertion that you have had for several years. We have started you on a blood thinner (Eliquis) really to prevent new clots from forming (as we discussed, when someone has formed clots relatively spontaneously like it appears that you did at some point in the past, the 3-5-year recurrence rate is somewhere in the neighborhood of 10-20%) making it beneficial to have you on a blood thinner to prevent new clots. The clot that we are seeing itself is adhered to the wall of the blood vessel and cannot go anywhere else. Given that it is causing you significant shortness of breath with exertion, as we discussed it might be something that a thoracic surgeon could take out to improve your symptoms. That is not a procedure that is ever been performed at a hospital I practice thatso I certainly would not professed to be an expert on whether or not this would benefit youbut it would probably be worthwhile to at least discuss your situation with a thoracic surgeon at [place] or [place], completely electively/at your leisure. - Of course, when someone is on a blood thinner, they are more prone to bleeding than when they are not. That said, the only other option would be to not have you on a blood thinner and not prevent future clots. - Typically most bleeding is relatively minor in terms of medical severity. Usually things such as nosebleeds or cut that does not want to stop bleeding are the common things that get labeled as "nuisance bleeding" - most "nuisance bleeding" will respond to 10 minutes of pressuretherefore if you get a nosebleed, or you cut your fingerput pressure on it (such as pinching your nose with a paper towel, or pushing a paper towel down on the cut) but then look at the clock. I advise looking at the clock as quick as possible because for most people 2 minutes of pressure will feel like 10, 10 minutes of pressure would feel like eternity, and most of us "peek"but to stop bleeding, 20 different 30 second intervals is wildly different than 10 continuous minutes. There is also a reasonable role for safetybecause if it is a nosebleed that does not stop and might need packed or cauterized, if it is a cut that will not stop bleeding, it might need a stitch, and in the rare event that it is bleeding you cannot put pressure on (such as vomiting blood or bloody bowel movements) then you would want to come straight to the hospital. - We will treat with Eliquis 5 mg twice a day for at least 3 months or so, but then given that the main purpose of the blood thinner is to prevent new clots more than treat acute clots (again the clot that we are seeing with you appears old) it would be really reasonable to talk with your regular doctors about reducing to 2.5 mg of Eliquis twice a day. To do: Take the Augmentin (amoxicillin/clavulanate) twice a day, next dose at home tonight (10/19) and finish out 7 total days (6 at home) take the Eliquis 5 mg twice a day (next dose at home tonight (10/19) indefinitelyafter several months possibly we will be able to reduce to 2.5 mg twice a day follow-up with the primary care office next week discussed with primary care and also discussed with your to consider following up with a thoracic surgeon to evaluate if you might have less shortness of breath if they intervene on the old clot that is in there. Total Time Total Time Spent Total Time Spent (In Minutes): Less than 30
== END 2024-10-19 09:55 | disposition home or self-care (01) ==
LOC: ED 10:26 → EDINP 10:26 → 3E 21:03